=== PATIENT | male | born 1960 | race Caucasian/White ===

== ENCOUNTER 2018-12-22 13:00 | Emergency (ER) | payer BC ==
[2018-12-22 13:09] VITALS: RESP 18
[2018-12-22] MEDS ORDERED: KETOROLAC 30 MG/ML 1 ML VIAL IVP STA (13:50)
[2018-12-22] MEDS ORDERED: HYDROmorphone 0.5 MG/0.5 ML SYRINGE IVP STA (13:50)
[2018-12-22] MEDS ORDERED: SODIUM CHLORIDE 0.9% 500 ML 500 ML IV STA (13:50)
[2018-12-22] MEDS ORDERED: ONDANSETRON 4 MG/2 ML VIAL IVP STA (13:50)
--- NOTE | 2018-12-22 14:04 | ED ---
General Adult HPI - General Chief complaint: Abdominal Pain Stated complaint: kidney stone Time Seen by Provider: 12/22/18 13:00 Source: patient, RN notes reviewed Mode of arrival: ambulatory Limitations: no limitations - History of Present Illness Initial comments: This a 58-year-old male who presents emergency Department complaining of left mid back pain which radiates down to the left groin and into the leg. Patient states the pain is worse with movement. Patient states it's also been making him nauseated as well per patient states his symptoms started Saturday but has gotten progressively worse. Patient states the pain is constant and is slowly getting worse over time. Patient denies any vomiting. Patient denies any diarrhea. Patient denies any recent fever chills. Patient denies any recent injury or trauma. Patient states he has had a history of kidney stones in the past and this does feel somewhat similar. Patient denies any chest pain or difficulty breathing. Patient denies any lightheadedness or dizziness. Patient denies any urinary frequency dysuria or hematuria. - Related Data Home Medications Medication Instructions Recorded Confirmed Finasteride [Proscar] 5 mg PO DAILY 12/22/18 12/22/18 amLODIPine [Norvasc] 10 mg PO DAILY 12/22/18 12/22/18 Previous Rx's Medication Instructions Recorded Loratadine [Claritin] 10 mg PO DAILY #5 tab 09/02/15 Allergies Allergy/AdvReac Type Severity Reaction Status Date / Time codeine Allergy Dyspnea Verified 12/22/18 13:46 Penicillins Allergy Dyspnea Verified 12/22/18 13:46 Review of Systems ROS Statement: Those systems with pertinent positive or pertinent negative responses have been documented in the HPI. ROS Other: All systems not noted in ROS Statement are negative. Past Medical History Past Medical History: Hypertension Additional Past Medical History / Comment(s): crohn's History of Any Multi-Drug Resistant Organisms: None Reported Past Surgical History: Bowel Resection, Hernia Repair Additional Past Surgical History / Comment(s): colostomy, preformed is [facility]. 2000, kidney stones, chron's Past Anesthesia/Blood Transfusion Reactions: No Reported Reaction Past Psychological History: No Psychological Hx Reported Smoking Status: Never smoker Past Alcohol Use History: Occasional Past Drug Use History: None Reported - Past Family History Father Family Medical History: Cancer, Congestive Heart Failure (CHF) General Exam - General Exam Comments Initial Comments: GENERAL: Patient is well-developed and well-nourished. Patient is nontoxic and well- hydrated and is in no acute distress. ENT: Neck is soft and supple. No significant lymphadenopathy is noted. Oropharynx is clear. Moist mucous membranes. Neck has full range of motion without eliciting any pain. EYES: The sclera were anicteric and conjunctiva were pink and moist. Extraocular movements were intact and pupils were equal round and reactive to light. Eyelids were unremarkable. PULMONARY: Unlabored respirations. Good breath sounds bilaterally. No audible rales rhonchi or wheezing was noted. CARDIOVASCULAR: There is a regular rate and rhythm without any murmurs gallops or rubs. ABDOMEN: Soft and nontender with normal bowel sounds. No palpable organomegaly was noted. There is no palpable pulsatile mass. SKIN: Skin is clear with no lesions or rashes and otherwise unremarkable. NEUROLOGIC: Patient is alert and oriented x3. Cranial nerves II through XII are grossly intact. Motor and sensory are also intact. Normal speech, volume and content. Symmetrical smile. Straight leg test is positive at the left leg at about 30 . MUSCULOSKELETAL: Normal extremities with adequate strength and full range of motion. No lower extremity swelling or edema. No calf tenderness. LYMPHATICS: No significant lymphadenopathy is noted PSYCHIATRIC: Normal psychiatric evaluation. Limitations: no limitations Course Vital Signs 12/22/18 13:03 Temperature 98.5 F Pulse Rate 80 Respiratory 18 Rate Blood Pressure 181/103 O2 Sat by Pulse 100 Oximetry Medical Decision Making - Medical Decision Making Computed tomography scan shows no acute abnormality. - Lab Data Result diagrams: 12/22/18 15:04 12/22/18 15:04 Lab Results 12/22/18 12/22/18 12/22/18 Range/Units 13:10 15:04 15:04 WBC 5.8 (3.8-10.6) k/uL RBC 5.04 (4.30-5.90) m/uL Hgb 16.5 (13.0-17.5) gm/dL Hct 46.6 (39.0-53.0) % MCV 92.5 (80.0-100.0) fL MCH 32.8 (25.0-35.0) pg MCHC 35.4 (31.0-37.0) g/dL RDW 12.9 (11.5-15.5) % Plt Count 170 (150-450) k/uL Neutrophils % 58 % Lymphocytes % 27 % Monocytes % 9 % Eosinophils % 3 % Basophils % 0 % Neutrophils # 3.4 (1.3-7.7) k/uL Lymphocytes # 1.6 (1.0-4.8) k/uL Monocytes # 0.5 (0-1.0) k/uL Eosinophils # 0.2 (0-0.7) k/uL Basophils # 0.0 (0-0.2) k/uL Sodium 141 (137-145) mmol/L Potassium 4.7 (3.5-5.1) mmol/L Chloride 107 (98-107) mmol/L Carbon Dioxide 21 L (22-30) mmol/L Anion Gap 13 mmol/L BUN 17 (9-20) mg/dL Creatinine 0.91 (0.66-1.25) mg/dL Est GFR (CKD-EPI)AfAm >90 (>60 ml/min/1.73 sqM) Est GFR (CKD-EPI)NonAf >90 (>60 ml/min/1.73 sqM) Glucose 97 (74-99) mg/dL Calcium 9.6 (8.4-10.2) mg/dL Total Bilirubin 0.7 (0.2-1.3) mg/dL AST 33 (17-59) U/L ALT 23 (21-72) U/L Alkaline Phosphatase 65 (38-126) U/L Total Protein 8.2 (6.3-8.2) g/dL Albumin 4.8 (3.5-5.0) g/dL Urine Color Yellow Urine Appearance Clear (Clear) Urine pH 5.0 (5.0-8.0) Ur Specific [place] 1.025 (1.001-1.035) Urine Protein Negative (Negative) Urine Glucose (UA) Negative (Negative) Urine Ketones Negative (Negative) Urine Blood Negative (Negative) Urine Nitrite Negative (Negative) Urine Bilirubin Negative (Negative) Urine Urobilinogen <2.0 (<2.0) mg/dL Ur Leukocyte Esterase Negative (Negative) Disposition Clinical Impression: Sciatica Disposition: HOME SELF-CARE Condition: Good Instructions (If sedation given, give patient instructions): Sciatica (ED) Additional Instructions: Patient should take Motrin 600 mg every 6 hours when necessary for pain. Patient follow-up the primary medical care doctor. She should return to the emergency department for any worsening or new symptoms Is patient prescribed a controlled substance at d/c from ED?: No Referrals: Sathya Alexandre MD [Primary Care Provider] - 1-2 days Time of Disposition: 16:26
[2018-12-22 14:11] LABS: Appearance,Urine Clear (Clear); Bilirubin,Urine Negative (Negative); Blood,Urine Negative (Negative); Color,Urine Yellow; Glucose,Urine (UA) Negative (Negative); Ketones,Urine Negative (Negative); Leukocyte Esterase,Urine Negative (Negative); Nitrite,Urine Negative (Negative); Protein,Urine Negative (Negative); Specific Gravity,Urine 1.025 (1.001-1.035); Urobilinogen,Urine <2.0 mg/dL (<2.0)
--- NOTE | 2018-12-22 15:18 | XR ---
EXAMINATION TYPE: XR KUB DATE OF EXAM: 12/22/2018 3:13 PM CLINICAL HISTORY: Left flank pain for 3 days. TECHNIQUE: Two Upright KUB images of the abdomen are obtained. COMPARISON: CT abdomen and pelvis April 02, 2015 FINDINGS: Some paucity of bowel gas is present. Visualized gas is noted in nondistended stomach. Prom inent right hepatic lobe redemonstrated. Lung bases are clear. No pneumoperitoneum is identified. Rou nd 4 mm density left pelvis favors phlebolith. No definite nephrolithiasis. Visualized osseous struct ures are intact. IMPRESSION: No definite nephrolithiasis.
[2018-12-22 15:19] LABS: Basophils % (A) 0 %; Eosinophils # (A) 0.2 k/uL (0-0.7); Eosinophils % (A) 3 %; HCT 46.6 % (39.0-53.0); HGB 16.5 gm/dL (13.0-17.5); Lymphocytes # (A) 1.6 k/uL (1.0-4.8); Lymphocytes % (A) 27 %; MCH 32.8 pg (25.0-35.0); MCHC 35.4 g/dL (31.0-37.0); MCV 92.5 fL (80.0-100.0); Mean Platelet Volume 7.7; Monocytes # (A) 0.5 k/uL (0-1.0); Monocytes % (A) 9 %; Neutrophils # (A) 3.4 k/uL (1.3-7.7); Neutrophils % (A) 58 %; Platelet Count 170 k/uL (150-450); RBC 5.04 m/uL (4.30-5.90); RDW 12.9 % (11.5-15.5); WBC 5.8 k/uL (3.8-10.6)
[2018-12-22 15:28] LABS: ALT 23 U/L (21-72); AST 33 U/L (17-59); Albumin 4.8 g/dL (3.5-5.0); Alkaline Phosphatase 65 U/L (38-126); Anion Gap 13 mmol/L; Blood Urea Nitrogen 17 mg/dL (9-20); Calcium 9.6 mg/dL (8.4-10.2); Carbon Dioxide 21 mmol/L (22-30); Chloride 107 mmol/L (98-107); Glucose 97 mg/dL (74-99); Potassium 4.7 mmol/L (3.5-5.1); Sodium 141 mmol/L (137-145); Total Bilirubin 0.7 mg/dL (0.2-1.3); Total Protein 8.2 g/dL (6.3-8.2)
--- NOTE | 2018-12-22 15:55 | CT ---
EXAMINATION TYPE: CT abdomen pelvis wo con DATE OF EXAM: 12/22/2018 COMPARISON: 04/02/2015 HISTORY: left flank pain CT DLP: 454.3 mGycm Automated exposure control for dose reduction was used. TECHNIQUE: Helical acquisition of images was performed from the lung bases through the pelvis. FINDINGS: LUNG BASES: No significant abnormality is appreciated. LIVER/GB: Liver is reduced in attenuation correlate for hepatic steatosis. Area of focal fatty sparin g in the region of the caudate lobe of the liver suspected. No obvious gallstones. PANCREAS: No significant abnormality is seen. SPLEEN: Stable appearing 1 cm splenic artery aneurysm.. ADRENALS: Thickening of left adrenal gland noted. KIDNEYS: Punctate 1 mm calcification lower pole right kidney with no evidence of hydronephrosis. URINARY BLADDER: No significant abnormality is seen. ADENOPATHY: None visualized. OSSEOUS STRUCTURES: Hypertrophic and degenerative change of the spine noted. BOWEL: An ostomy is again noted. Findings appear to be stable from the prior exam. Mild bowel wall t hickening involving the left colon. OTHER: There is a density seen in the presacral space extends bilaterally which is unchanged dating b ack to 2009. Likely is postsurgical scar. Aorta of normal caliber. Atherosclerotic changes are seen c anal stenosis L4-5 suspected with some retroaortic left renal vein IMPRESSION: 1. Postoperative change with nonspecific bowel gas pattern. 2. Stable 1 cm splenic artery aneurysm prior exam. 3. Punctate lower pole right renal calculus with no evidence of hydronephrosis bilaterally. No defini te renal calculi on the left. 4. There is mild wall thickening of a bowel loop within the left abdomen correlate for enteritis.
[2018-12-22 16:56] VITALS: BP 134/97; PULSE 64; TEMP 97.7
== END 2018-12-22 16:57 | disposition home or self-care (01) ==
LOC: EC 13:00
DX: M54.32 Sciatica, left side (principal); R10.32 Left lower quadrant pain; R11.0 Nausea; I10 Essential (primary) hypertension; Z98.890 Other specified postprocedural states; Z93.3 Colostomy status; Z87.19 Personal history of other diseases of the digestive system; Z79.899 Other long term (current) drug therapy; Z88.5 Allergy status to narcotic agent; Z88.0 Allergy status to penicillin
CPT/HCPCS: 36415; 80053; 85025; 81003; 74018; 74176; 99284; 96374; 96375 ×2; 96361; J2405; J1885; J1170

== ENCOUNTER 2019-09-25 11:53 | Emergency (ER) | payer BC ==
[2019-09-25 11:58] VITALS: TEMP 97.6
--- NOTE | 2019-09-25 13:25 | XR ---
EXAMINATION TYPE: XR wrist complete RT DATE OF EXAM: 09/25/2019 CLINICAL HISTORY: Ulnar side pain. TECHNIQUE: Frontal, lateral, scaphoid, and oblique images of the right wrist are obtained. COMPARISON: None FINDINGS: There is no acute fracture/dislocation evident in the right wrist. Radiocarpal narrowing o therwise carpal joint space is fairly well-maintained. The overlying soft tissue appears unremarkabl e. IMPRESSION: As above.
--- NOTE | 2019-09-25 14:33 | ED ---
Upper Extremity HPI - General Chief Complaint: Extremity Injury, Upper Stated Complaint: rt arm injury Time Seen by Provider: 09/25/19 12:37 Source: patient Mode of arrival: ambulatory Limitations: no limitations - History of Present Illness Initial Comments: This is a 59-year-old male, who presents emergency department today for evaluation for chief complaint of right wrist pain. Patient reports that he had his wrist flexed, and was reaching behind as well as refrigerator help fix it. Patient reports he felt a pull and snap over his wrist, complains pain over the ulnar aspect of this risk, and pain with range of motion of his fifth and fourth digit. This time Patient states that he is right-handed. Patient states that he has had no previous injuries. His orthopedic is Dr. Arvizu. - Related Data Home Medications Medication Instructions Recorded Confirmed Finasteride [Proscar] 5 mg PO DAILY 12/22/18 12/22/18 amLODIPine [Norvasc] 10 mg PO DAILY 12/22/18 12/22/18 Previous Rx's Medication Instructions Recorded Loratadine [Claritin] 10 mg PO DAILY #5 tab 09/02/15 Allergies Allergy/AdvReac Type Severity Reaction Status Date / Time codeine Allergy Dyspnea Verified 09/25/19 11:58 Penicillins Allergy Dyspnea Verified 09/25/19 11:58 Review of Systems ROS Statement: Those systems with pertinent positive or pertinent negative responses have been documented in the HPI. ROS Other: All systems not noted in ROS Statement are negative. Past Medical History Past Medical History: Hypertension Additional Past Medical History / Comment(s): crohn's History of Any Multi-Drug Resistant Organisms: None Reported Past Surgical History: Bowel Resection, Hernia Repair Additional Past Surgical History / Comment(s): colostomy, preformed is [facility]. 1999, kidney stones, chron's Past Anesthesia/Blood Transfusion Reactions: No Reported Reaction Past Psychological History: No Psychological Hx Reported Smoking Status: Never smoker Past Alcohol Use History: Occasional Past Drug Use History: None Reported - Past Family History Father Family Medical History: Cancer, Congestive Heart Failure (CHF) General Exam - General Exam Comments Initial Comments: 59-year-old male. No distress. Limitations: no limitations General appearance: alert, in no apparent distress Head exam: Present: atraumatic Eye exam: Present: normal appearance, PERRL, EOMI. Absent: scleral icterus, conjunctival injection, periorbital swelling ENT exam: Present: normal exam, mucous membranes moist Neck exam: Present: normal inspection. Absent: tenderness, meningismus, lymphadenopathy Respiratory exam: Present: normal lung sounds bilaterally. Absent: respiratory distress, wheezes, rales, rhonchi, stridor Right Elbow exam: Present: normal inspection, full ROM Forearm Wrist exam: Present: normal inspection, full ROM Hand Wrist exam: Present: normal inspection, tenderness (Patient size over the ulnar aspect of the right wrist.). Absent: full ROM Neuro motor exam: Present: wrist extension intact, thumb opposition intact, thumb adduction intact, fingers 2-5 abduction intact, other (Patient has tenderness over the fourth and fifth digit with range of motion.) Vascular: Present: normal capillary refill Back exam: Present: normal inspection Neurological exam: Present: alert, oriented X3, CN II-XII intact Course Vital Signs 09/25/19 09/25/19 11:56 14:45 Temperature 97.6 F Pulse Rate 86 78 Respiratory 18 20 Rate Blood Pressure 169/99 122/76 O2 Sat by Pulse 99 99 Oximetry Procedures - Orthopedic Splinting/Casting Injury #1 Side: right Upper Extremity Injury Location: wrist Upper Extremity Immobilizer: ulnar gutter Additional Comments: Patient is reevaluated neurovascularly intact. Medical Decision Making - Medical Decision Making This is a 59-year-old male presents return today for right wrist injury. Patient this time reports he's always other and had his wrist in a flexed position when trying to fix the refrigerator. He felt a pop. Complains of pain over the ulnar aspect of the hand and wrist. This time Patient x-rays show no evidence of acute fracture dislocation. Due to likely tendon strain, Patient was placed in an ulnar gutter splint. I discussed the Patient can follow-up with intensive care specialist. Temperature medicine. All questions were answered. - Radiology Data Radiology results: report reviewed Wrist x-ray shows no acute fracture dislocation of the right wrist. Radiocarpal narrowing otherwise carpal joint spaces. Vomiting. Overlying soft tissue appears unremarkable. Disposition Clinical Impression: Right wrist sprain Disposition: HOME SELF-CARE Condition: Good Instructions (If sedation given, give patient instructions): Wrist Injury (ED) Additional Instructions: Patient can take anti-inflammatory medicine. Remain in the splint until seen by orthopedic. Return to the emergency department if any alarming signs or symptoms occur. Is patient prescribed a controlled substance at d/c from ED?: No Referrals: Sathya Alexandre MD [Primary Care Provider] - 1-2 days Asad Arvizu DO [Doctor of Osteopathic Medicine] - 1-2 days Time of Disposition: 14:32
[2019-09-25 14:47] VITALS: BP 122/76; PULSE 78; RESP 20
== END 2019-09-25 14:47 | disposition home or self-care (01) ==
LOC: EC 11:53
DX: S63.501A Unspecified sprain of right wrist, initial encounter (principal); I10 Essential (primary) hypertension; Z88.0 Allergy status to penicillin; Z88.5 Allergy status to narcotic agent; Z79.899 Other long term (current) drug therapy; X50.1XXA Overexertion from prolonged static or awkward postures, initial encounter; Y93.89 Activity, other specified
CPT/HCPCS: 29125; 99283

== ENCOUNTER → 2020-12-08 | Outpatient (CLI) | payer BC ==
--- NOTE | 2020-12-09 08:43 | CT ---
EXAMINATION TYPE: CT abdomen pelvis w con DATE OF EXAM: 12/08/2020 COMPARISON: 12/22/2018 HISTORY: 60-year-old male Right lower quadrant pain TECHNIQUE: Contiguous axial scanning of the abdomen and pelvis following administration of 100 ml Iso libertad 300 IV contrast. Delayed images through the kidneys and coronal/sagittal reconstructions perform ed. CT DLP: 1130 mGycm Automated exposure control for dose reduction was used. FINDINGS: Heart normal size without pericardial effusion. Lung bases clear without pleural effusion. There is a fluid column within the mildly distended distal esophagus. Prominent ingested debris within the valentine leisa fundus and body. Liver is enlarged at 22.0 cm with low-attenuation. No focal lesion is seen. No biliary ductal dilatat ion. Portal venous system is patent. Gallbladder, adrenal glands, spleen, pancreas within normal limits. There are a few left-sided jejunal loops which appear mildly thickened. No dilated small bowel, free fluid, free air. A few borderline sized left mesenteric lymph nodes measuring up to 7 mm were present previously as we ll. Prominent but nonenlarged 1 cm portacaval lymph node. No progressive lymphadenopathy seen. Circumaortic left renal vein. There is a right lower quadrant ileostomy. The colon is surgically absent. Bladder partially distended. Prostate gland measures 4.0 cm wide. No abnormal fluid collection in pel vis or pelvic lymphadenopathy. Bones: Mild degenerative change at the hips. Facet arthropathy lower lumbar spine. IMPRESSION: 1. Status post complete colectomy with right lower quadrant ileostomy. 2. There are some thickened loops of jejunum in the left side of the abdomen. Nonspecific mild enteri tis is suggested. 3. A fluid column mildly distending the distal esophagus. Findings could reflect esophageal dysmotili ty or prominent gastroesophageal reflux. Correlate with patient's symptoms. 4. Hepatomegaly (22.0 cm) with hepatic steatosis.
== END | disposition home or self-care (01) ==
LOC: RADCTMAIN 13:23
PROVIDERS: ATTEND Surgery
DX: K76.0 Fatty (change of) liver, not elsewhere classified (principal); R16.0 Hepatomegaly, not elsewhere classified; K22.8 Other specified diseases of esophagus; K63.89 Other specified diseases of intestine; Z90.49 Acquired absence of other specified parts of digestive tract
CPT/HCPCS: 74177; Q9967

== ENCOUNTER → 2021-06-14 | Outpatient (CLI) | payer BC ==
--- NOTE | 2021-06-14 16:42 | NM ---
EXAMINATION TYPE: NM stress cardiolite complete DATE OF EXAM: 06/14/2021 COMPARISON: NONE HISTORY: Dyspnea. Bradycardia. TECHNIQUE: After the intravenous administration of 9.9 mCi Tc 99m Sestamibi - Rest images obtained 4 5 minutes post injection. The patient exercised using a ELIZABETH protocol and 1 minute prior to peak e xercise was injected with 25.996 mCi Tc 99m Sestamibi - Stress images obtained 15 minutes post inject ion. FINDINGS: Targeted heart rate was achieved during performance of the study. Review of stress and rest SPECT odin ges demonstrates no distinct reversible or fixed perfusion abnormality. Gated analysis shows normal wall motion with an estimated left ventricular ejection fraction of 65 %. TID 0.62 IMPRESSION: 1. No scintigraphic evidence for reversible ischemia 2. Ejection fraction 65%.
--- NOTE | 2021-06-15 17:32 | P.STRESS ---
- Stress Test Note Stress Test Results/Findings: Exam Performed: stress echo exercise Exam Date: 06/14/21 Reason for Exam: DYSPNEA Height: 5 ft 10 in Weight: 190 kg Protocol: CARDIOLITE ELIZABETH Stage: 3 Duration of Exercise: 7:15 Resting Heart Rate: 74 Resting Blood Pressure: 131/94 Maximum Achieved Heart Rate: 160 Maximum Achieved Blood Pressure: 231/95 85% PMHR: 136 100% PMHR: 160 METS: 8.7 Technologist Comment: Stress Test Results/Findings: Patient exercised on a Elizabeth protocol for 7 minutes 15 seconds achieving a peak heart rate of 158 beats a minute. Hypertensive response to exercise Peak blood pressure 231/95 mmHg Twelve-lead EKG showed sinus rhythm normal NV incomplete right bundle branch block with early repolarization abnormality No ECG evidence for ischemia no arrhythmias noted
--- NOTE | 2021-06-16 09:06 | ECHOS ---
Stress Test Results/Findings: Exam Performed: stress echo exercise Exam Date: 06/14/21 Reason for Exam: DYSPNEA Height: 5 ft 10 in Weight: 190 kg Protocol: CARDIOLITE ELIZABETH Stage: 3 Duration of Exercise: 7:15 Resting Heart Rate: 74 Resting Blood Pressure: 131/94 Maximum Achieved Heart Rate: 160 Maximum Achieved Blood Pressure: 231/95 85% PMHR: 136 100% PMHR: 160 METS: 8.7 Technologist Comment: Stress Test Results/Findings: Patient exercised on a Elizabeth protocol for 7 minutes 15 seconds achieving a peak heart rate of 158 beats a minute. Hypertensive response to exercise Peak blood pressure 231/95 mmHg Twelve-lead EKG showed sinus rhythm normal PA incomplete right bundle branch block with early repolarization abnormality No ECG evidence for ischemia no arrhythmias noted MTDD
== END | disposition home or self-care (01) ==
LOC: RADNMMAIN 07:49
PROVIDERS: ATTEND Internal Medicine
DX: R06.00 Dyspnea, unspecified (principal); R00.1 Bradycardia, unspecified
CPT/HCPCS: 93017; 78452; A9500

== ENCOUNTER → 2021-11-07 | Outpatient (CLI) | payer BC ==
--- NOTE | 2021-11-07 14:29 | XR ---
EXAMINATION TYPE: XR knee complete LT DATE OF EXAM: 11/07/2021 CLINICAL HISTORY: Clicking and pain TECHNIQUE: Three views of the left knee are obtained. COMPARISON: None. FINDINGS: There is no acute fracture/dislocation evident in left knee. [id number] tricompartme nt joint space loss. Mild patellofemoral compartment spurring. The overlying soft tissue appears unr emarkable. IMPRESSION: As above.
== END | disposition home or self-care (01) ==
LOC: RADXRMAIN 13:52
PROVIDERS: ATTEND Internal Medicine
DX: M25.862 Other specified joint disorders, left knee (principal)

== ENCOUNTER → 2023-12-23 | Outpatient (CLI) | payer BC ==
--- NOTE | 2023-12-23 17:44 | US ---
EXAMINATION TYPE: US carotid duplex BILAT DATE OF EXAM: 12/23/2023 COMPARISON: NONE CLINICAL INDICATION: Male, 63 years old with history of I65.23 OCCLUSION AND STENOSIS OF BILATERAL CA ROTID; Stenosis. TECHNIQUE: Carotid duplex ultrasound examination. Indirect Doppler criteria was utilized. FINDINGS: EXAM MEASUREMENTS: RIGHT: Peak Systolic Velocity (PSV) cm/sec ----- Right CCA: 137.0 ----- Right ICA: 96.6 ----- Right ECA: 116.0 ICA/CCA ratio: 0.7 RIGHT: End Diastole cm/sec ----- Right CCA: 35.3 ----- Right ICA: 20.9 ----- Right ECA: 18.9 LEFT: Peak Systolic Velocity (PSV) cm/sec ----- Left CCA: 121.1 ----- Left ICA: 99.6 ----- Left ECA: 84.2 ICA/CCA ratio: 0.8 LEFT: End Diastole cm/sec ----- Left CCA: 33.1 ----- Left ICA: 22.6 ----- Left ECA: 11.7 VERTEBRALS (direction of flow): Right Vertebral: Antegrade Left Vertebral: Antegrade Rhythm: Normal PROPERTY CONSULTANT NOTES: *Elevated velocities within bilateral CCAs. Intimal thickening seen bilaterally. IMPRESSION: There is mild elevation of peak systolic velocities within the bilateral common carotid arteries. Thi s could reflect mild proximal stenoses at the vessel origins. No hemodynamically significant internal carotid artery stenosis on either side. Criteria for Assigning % of Stenosis / Diameter reduction (Estimation based on the indirect measurements of the internal carotid artery velocities (ICA PSV). 1. Normal (no stenosis)=ICA PSV < 125 cm/s: ratio < 2.0: ICA EDV<40 cm/s. 2. Less than 50% stenosis=ICA PSV < 125 cm/s: ratio < 2.0: ICA EDV<40 cm/s. 3. 50 to 69% stenosis=ICA PSV of 125 to 230 cm/s: ration 2.0 ? 4.0: ICA EDV 40-100 cm/s. 4. Greater than 70% stenosis to near occlusion= ICA PSV > 230 cm/s: ratio > 4.0: ICA EDV > 100 cm/s. 5. Near occlusion= ICA PSV velocities may be low or undetectable: variable ratio and ICA EDV. 6. Total occlusion=unable to detect flow.
== END | disposition home or self-care (01) ==
LOC: RADUSWWP 10:57
PROVIDERS: ATTEND Internal Medicine
DX: I65.23 Occlusion and stenosis of bilateral carotid arteries (principal)
CPT/HCPCS: 93880

== ENCOUNTER 2024-04-05 08:52 | Observation (INO) | payer BC ==
--- NOTE | 2024-04-05 09:10 | ED ---
General Adult HPI - General Chief complaint: Nausea/Vomiting/Diarrhea Stated complaint: Nausea, ABD Pain Time Seen by Provider: 04/05/24 09:00 Source: patient, RN notes reviewed, old records reviewed Mode of arrival: ambulatory Limitations: no limitations - History of Present Illness Initial comments: This is a 63-year-old male who has a history of Crohn's disease. Patient has a colostomy bag. Patient states over the last few days he has been having issues with going more often. Patient states anything he drinks or eats goes right through him he is becoming very dehydrated and lightheaded when he walks. Patient denies any significant abdominal pain. Patient Nuys any back pain. Patient denies any fever or chills. Patient Nuys chest pain difficulty breathing or shortness of breath. Patient states is difficult to tell if he is having any diarrhea because is normally very liquid but he states the stool is extremely clear at this point. - Related Data Home Medications Medication Instructions Recorded Confirmed Finasteride [Proscar] 5 mg PO DAILY 12/22/18 12/22/18 amLODIPine [Norvasc] 10 mg PO DAILY 12/22/18 12/22/18 Previous Rx's Medication Instructions Recorded Loratadine [Claritin] 10 mg PO DAILY #5 tab 09/02/15 Allergies Allergy/AdvReac Type Severity Reaction Status Date / Time codeine Allergy Dyspnea Verified 09/25/19 11:58 Penicillins Allergy Dyspnea Verified 09/25/19 11:58 Review of Systems ROS Statement: Those systems with pertinent positive or pertinent negative responses have been documented in the HPI. ROS Other: All systems not noted in ROS Statement are negative. Past Medical History Past Medical History: Hypertension Additional Past Medical History / Comment(s): crohn's History of Any Multi-Drug Resistant Organisms: None Reported Past Surgical History: Bowel Resection, Hernia Repair Additional Past Surgical History / Comment(s): colostomy, preformed is appox. 2000, kidney stones, chron's Past Anesthesia/Blood Transfusion Reactions: No Reported Reaction Past Psychological History: No Psychological Hx Reported Past Alcohol Use History: Occasional Past Drug Use History: None Reported - Past Family History Father Family Medical History: Cancer, Congestive Heart Failure (CHF) General Exam - General Exam Comments Initial Comments: GENERAL: Patient is well-developed and well-nourished. Patient is nontoxic and well- hydrated and is in mild distress. ENT: Neck is soft and supple. No significant lymphadenopathy is noted. Oropharynx is clear. Dry mucous membranes. Neck has full range of motion without eliciting any pain. EYES: The sclera were anicteric and conjunctiva were pink and moist. Extraocular movements were intact and pupils were equal round and reactive to light. Eyelids were unremarkable. PULMONARY: Unlabored respirations. Good breath sounds bilaterally. No audible rales rhonchi or wheezing was noted. CARDIOVASCULAR: Patient is tachycardic at about 120 beats a minute ABDOMEN: Soft and nontender with normal bowel sounds. SKIN: Skin is clear with no lesions or rashes and otherwise unremarkable. NEUROLOGIC: Patient is alert and oriented x3. Cranial nerves II through XII are grossly intact. Motor and sensory are also intact. Normal speech, volume and content. Symmetrical smile. MUSCULOSKELETAL: Normal extremities with adequate strength and full range of motion. LYMPHATICS: No significant lymphadenopathy is noted PSYCHIATRIC: Normal psychiatric evaluation. Limitations: no limitations Course Vital Signs 04/05/24 04/05/24 04/05/24 08:54 09:53 09:54 Temperature 97.3 F L Pulse Rate 120 H 87 90 Respiratory 20 17 Rate Blood Pressure 131/84 140/105 O2 Sat by Pulse 95 97 Oximetry Medical Decision Making - Medical Decision Making Was pt. sent in by a medical professional or institution (, [facility], [employer], urgent care, hospital, or snf...) When possible be specific @ -No Did you speak to anyone other than the patient for history (EMS, parent, family, police, friend...)? What history was obtained from this source @ -No Did you review nursing and triage notes (agree or disagree)? Why? @ -I reviewed and agree with nursing and triage notes Were old charts reviewed (outside hosp., previous admission, EMS record, old EKG, old radiological studies, urgent care reports/EKG's, snf records)? Report findings @ -I compared today's lab work with prior lab work. Patient's hemoglobin in the past was normal as was creatinine but today they are both elevated. Differential Diagnosis (chest pain, altered mental status, abdominal pain women, abdominal pain men, vaginal bleeding, weakness, fever, dyspnea, syncope, headache, dizziness, GI bleed, back pain, seizure, CVA, palpatations, mental health, musculoskeletal)? @ -Differential Dizziness: Benign paroxysmal positional Vertigo, Menieres disease, otitis media, acoustic neuroma, vertebrobasilar insufficiency, cerebellar stroke, encephalitis, hypovolemic, arrhythmia, coronary artery syndrome, anemia, this is not meant to be an all-inclusive list EKG interpreted by me (3pts min.). @ -As above X-rays interpreted by me (1pt min.). @ -None done CT interpreted by me (1pt min.). @ -None done U/S interpreted by me (1pt. min.). @ -None done What testing was considered but not performed or refused? (CT, X-rays, U/S, labs)? Why? @ -None What meds were considered but not given or refused? Why? @ -None Did you discuss the management of the patient with other professionals (professionals i.e. , PA, CE[employer]ACHINE, lab, RT, psych nurse, social media intern, hose builder, teacher, information systems security officer, case hardener)? Give summary @ -I spoke with Dr. Camacho and he agreed to admit the patient admit the patient wrote admitting orders Was smoking cessation discussed for >3mins.? @ -No Was critical care preformed (if so, how long)? @ -No Were there social determinants of health that impacted care today? How? (Homelessness, low income, unemployed, alcoholism, drug addiction, transportation, low edu. Level, literacy, decrease access to med. care, detention, rehab)? @ -No Was there de-escalation of care discussed even if they declined (Discuss DNR or withdrawal of care, Hospice)? DNR status @ -No What co-morbidities impacted this encounter? (DM, HTN, Smoking, COPD, CAD, Cancer, CVA, ARF, Chemo, Hep., AIDS, mental health diagnosis, sleep apnea, morbid obesity)? @ -None Was patient admitted / discharged? Hospital course, mention meds given and route, prescriptions, significant lab abnormalities, going to OR and other pe rtinent info. @ -Patient was dehydrated and his creatinine was elevated to 2.6. I gave the patient a liter and half of fluid. Patient was feeling slightly better. I spoke with Dr. Camacho he agreed admit the patient admit the patient wrote admitting orders. I consulted nephrology Undiagnosed new problem with uncertain prognosis? @ -No Drug Therapy requiring intensive monitoring for toxicity (Heparin, Nitro, Insulin, Cardizem)? @ -No Were any procedures done? @ -No Diagnosis/symptom? @ -Acute renal failure Acute, or Chronic, or Acute on Chronic? @ -Acute Uncomplicated (without systemic symptoms) or Complicated (systemic symptoms)? @ -Comp with Side effects of treatment? @ -No Exacerbation, Progression, or Severe Exacerbation? @ -No Poses a threat to life or bodily function? How? (Chest pain, USA, NH, pneumonia, PE, COPD, DKA, ARF, appy, cholecystitis, CVA, Diverticulitis, Homicidal, Lo cidal, threat to staff... and all critical care pts) @ -Yes this can lead to electrolyte abnormalities and morbidity or mortality. Diagnosis/symptom? @ -Dehydration Acute, or Chronic, or Acute on Chronic? @ -Acute Uncomplicated (without systemic symptoms) or Complicated (systemic symptoms)? @ -Complicated Side effects of treatment? @ -None Exacerbation, Progression, or Severe Exacerbation] @ -No Poses a threat to life or bodily function? @ -No - Lab Data Result diagrams: 04/05/24 09:43 04/05/24 09:43 Lab Results 04/05/24 04/05/24 04/05/24 Range/Units 09:43 09:43 09:43 WBC 9.3 (3.8-10.6) k/uL RBC 5.92 H (4.30-5.90) m/uL Hgb 19.1 H* (13.0-17.5) gm/dL Hct 57.7 H* (39.0-53.0) % MCV 97.3 (80.0-100.0) fL MCH 32.2 (25.0-35.0) pg MCHC 33.1 (31.0-37.0) g/dL RDW 12.9 (11.5-15.5) % Plt Count 189 (150-450) k/uL MPV 9.3 Neutrophils % 80 % Lymphocytes % 11 % Monocytes % 7 % Eosinophils % 1 % Basophils % 0 % Neutrophils # 7.4 (1.3-7.7) k/uL Lymphocytes # 1.1 (1.0-4.8) k/uL Monocytes # 0.6 (0-1.0) k/uL Eosinophils # 0.1 (0-0.7) k/uL Basophils # 0.0 (0-0.2) k/uL Sodium 138 (137-145) mmol/L Potassium 5.6 H (3.5-5.1) mmol/L Chloride 104 (98-107) mmol/L Carbon Dioxide 15 L (22-30) mmol/L Anion Gap 19 mmol/L BUN 27 H (9-20) mg/dL Creatinine 2.60 H (0.66-1.25) mg/dL Est GFR (CKD-EPI)AfAm 29 (>60 ml/min/1.73 sqM) Est GFR (CKD-EPI)NonAf 25 (>60 ml/min/1.73 sqM) Glucose 134 H (74-99) mg/dL Plasma Lactic Acid Joao 1.6 (0.7-2.0) mmol/L Calcium 11.0 H (8.4-10.2) mg/dL Magnesium 2.1 (1.6-2.3) mg/dL Total Bilirubin 1.5 H (0.2-1.3) mg/dL AST 43 (17-59) U/L ALT 49 (4-49) U/L Alkaline Phosphatase 108 (38-126) U/L Total Protein 11.0 H (6.3-8.2) g/dL Albumin 5.8 H (3.5-5.0) g/dL Amylase 77 (30-110) U/L Lipase 63 (23-300) U/L Disposition Clinical Impression: Acute renal failure, Dehydration Disposition: ADMITTED IP TO THIS HOSP Referrals: Mayur Camacho MD [Primary Care Provider] - 1-2 days Time of Disposition: 10:43
[2024-04-05] MEDS: SODIUM CHLORIDE 0.9% 500 ML 500 ML IV STA (09:45)
[2024-04-05] MEDS: ONDANSETRON 4 MG/2 ML VIAL IVP STA (09:45)
[2024-04-05] MEDS: SODIUM CHLORIDE 0.9% 1,000 ML IV STA (09:45)
[2024-04-05 10:12] LABS: ALT 49 U/L (4-49); AST 43 U/L (17-59); African American GFR (CKD) 29 (>60 ml/min/1.73 sqM); Albumin 5.8 g/dL (3.5-5.0); Alkaline Phosphatase 108 U/L (38-126); Amylase 77 U/L (30-110); Anion Gap 19 mmol/L; Blood Urea Nitrogen 27 mg/dL (9-20); Carbon Dioxide 15 mmol/L (22-30); Chloride 104 mmol/L (98-107); Glucose 134 mg/dL (74-99); Lipase 63 U/L (23-300); Magnesium 2.1 mg/dL (1.6-2.3); Non-African American GFR(CKD) 25 (>60 ml/min/1.73 sqM); Potassium 5.6 mmol/L (3.5-5.1); Sodium 138 mmol/L (137-145); Total Bilirubin 1.5 mg/dL (0.2-1.3)
[2024-04-05 10:21] LABS: Basophils % (A) 0 %; Eosinophils # (A) 0.1 k/uL (0-0.7); Eosinophils % (A) 1 %; Lymphocytes # (A) 1.1 k/uL (1.0-4.8); Lymphocytes % (A) 11 %; MCH 32.2 pg (25.0-35.0); MCHC 33.1 g/dL (31.0-37.0); MCV 97.3 fL (80.0-100.0); Mean Platelet Volume 9.3; Monocytes # (A) 0.6 k/uL (0-1.0); Monocytes % (A) 7 %; Neutrophils # (A) 7.4 k/uL (1.3-7.7); Neutrophils % (A) 80 %; Platelet Count 189 k/uL (150-450); RBC 5.92 m/uL (4.30-5.90); RDW 12.9 % (11.5-15.5); WBC 9.3 k/uL (3.8-10.6)
[2024-04-05 10:29] LABS: HCT 57.7 % (39.0-53.0); HGB 19.1 gm/dL (13.0-17.5)
[2024-04-05] MEDS: SODIUM CHLORIDE 0.9% 1,000 ML IV ONE (10:51)
--- NOTE | 2024-04-05 11:30 | P.NPCON ---
History of Present Illness - Reason for Consult acute renal failure - History of Present Illness Reason for consultation: Acute kidney injury History of present illness: Patient is a 63-year-old male seen in renal consultation for acute kidney injury. Patient denies any personal history of kidney disease. Patient's creatinine in November 2022 was 1.0 and elevated at 2.6 this admission. Patient has history of Crohn's disease and has an ileostomy for over 20 years. Patient states he usually empties his ileostomy twice a day and recently has noticed increased output and has to empty his colostomy almost every hour. Patient states he felt dizzy and was also having generalized cramping. Patient felt he needed IV fluids and came to the hospital. Patient does take vitamin D supplementation every day. He is not sure of the dose. He denies any calcium supplementation. He denies any personal history of malignancy. No chest pain or shortness of breath. He has been voiding but has noticed urine output has been decreased. No gross hematuria or dysuria. Denies use of nonsteroidals. Denies family history of renal disease. Denies history of coronary artery disease. No history of diabetes. Patient states he vomited once which was self-induced but that did not help with his overall symptoms or ileostomy output. Vital signs are stable. General: No audible rhonchi or wheezes. HEENT: Head exam is unremarkable. LUNGS: No audible rhonchi or wheezes. HEART: Rate and Rhythm are regular. ABDOMEN: Ileostomy noted. EXTREMITITES: No edema. Past Medical History Past Medical History: Hypertension Additional Past Medical History / Comment(s): crohn's History of Any Multi-Drug Resistant Organisms: None Reported Past Surgical History: Bowel Resection, Hernia Repair Additional Past Surgical History / Comment(s): colostomy, preformed is appox. 2000, kidney stones, chron's Past Anesthesia/Blood Transfusion Reactions: No Reported Reaction Past Psychological History: No Psychological Hx Reported Past Alcohol Use History: Occasional Past Drug Use History: None Reported - Past Family History Father Family Medical History: Cancer, Congestive Heart Failure (CHF) Medications and Allergies Home Medications Medication Instructions Recorded Confirmed Type Loratadine [Claritin] 10 mg PO DAILY #5 tab 09/02/15 12/22/18 Rx Finasteride [Proscar] 5 mg PO DAILY 12/22/18 12/22/18 History amLODIPine [Norvasc] 10 mg PO DAILY 12/22/18 12/22/18 History Allergies Allergy/AdvReac Type Severity Reaction Status Date / Time chocolate Allergy Unknown Verified 04/05/24 10:47 codeine Allergy Dyspnea Verified 09/25/19 11:58 Penicillins Allergy Dyspnea Verified 09/25/19 11:58 Physical Exam Vitals: Vital Signs Temp Pulse Resp BP Pulse Ox 04/05/24 11:00 79 16 158/105 97 04/05/24 10:45 80 15 155/100 97 04/05/24 10:30 80 16 152/105 97 04/05/24 10:15 87 16 148/105 96 04/05/24 10:00 84 15 140/105 94 L 04/05/24 09:54 90 17 140/105 97 04/05/24 09:53 87 04/05/24 08:54 97.3 F L 120 H 20 131/84 95 Intake and Output 04/04/24 04/05/24 04/05/24 22:59 06:59 14:59 Other: Weight 87.09 kg Results - Lab Results Most recent lab results Calcium 11.0 mg/dL (8.4-10.2) H 04/05/24 09:43 Magnesium 2.1 mg/dL (1.6-2.3) 04/05/24 09:43 04/05/24 09:43 04/05/24 09:43 Assessment and Plan Plan: Assessment: 1. Acute kidney injury secondary to ATN secondary to hypovolemia from increased ileostomy output. Creatinine 2.6. Creatinine in November 2022 was near 1. 2. Metabolic acidosis secondary to acute kidney injury and GI losses. 3. Hypercalcemia secondary to volume contraction and vitamin D supplementation. Denies history of malignancy. 4. Hyperkalemia. Hemolyzed sample. This will be repeated. 5. Polycythemia possibly from volume contraction. 6. Benign hypertension. 7. Crohn's disease status post ileostomy for over 20 years. Plan: Patient received 2 L IV fluids in the ER. Start maintenance fluids with bicarb drip to be run at 125 cc an hour. Avoid calcium and vitamin D supplementation at this time. Check renal ultrasound. Check UA. Check bladder scan to rule out urinary retention. Avoid nephrotoxins. Resume amlodipine but at a lower dose of 5 mg once daily. Hold for systolic blood pressure less than 120. Repeat BMP now. Continue to monitor renal function and urine output. Thank you for the consultation. I will continue to follow the patient with you during his hospital stay.
[2024-04-05] MEDS: amLODIPine 5 MG TAB PO SCH (12:32)
[2024-04-05 13:05] LABS: African American GFR (CKD) 48 (>60 ml/min/1.73 sqM); Anion Gap 17 mmol/L; Blood Urea Nitrogen 26 mg/dL (9-20); Calcium 9.7 mg/dL (8.4-10.2); Carbon Dioxide 11 mmol/L (22-30); Chloride 109 mmol/L (98-107); Glucose 101 mg/dL (74-99); Non-African American GFR(CKD) 42 (>60 ml/min/1.73 sqM); Potassium 5.8 mmol/L (3.5-5.1); Sodium 137 mmol/L (137-145)
[2024-04-05] MEDS: DEXTROSE 5% IN WATER 1,000 ML with SODIUM BICARB (1 MEQ/ML) 150 ML IV SCH (13:22)
--- NOTE | 2024-04-05 13:37 | US ---
EXAMINATION TYPE: US kidneys/renal and bladder DATE OF EXAM: 04/05/2024 COMPARISON: CT 2020 CLINICAL INDICATION: Male, 63 years old with history of anne marie; EXAM MEASUREMENTS: Right Kidney: 12.2 x 4.8 x 5.0 cm Left Kidney: 12.4 x 4.9 x 4.9 cm Right Kidney: no hydronephrosis or masses seen Left Kidney: no hydronephrosis or masses seen Bladder: not distended There is no evidence for hydronephrosis at this point in time. No nephrolithiasis is seen. No josep s are identified. IMPRESSION: 1. Normal kidneys bilaterally without hydronephrosis, calculus or solid renal mass. 2. Urinary bladder not evaluated due to nondistention
[2024-04-05 13:41] LABS: Appearance,Urine Cloudy (Clear); Bacteria,Urine Rare /hpf; Bilirubin,Urine Negative (Negative); Blood,Urine Small (Negative); Color,Urine Yellow; Glucose,Urine (UA) Negative (Negative); Granular Casts,Urine 5 /lpf (0); Hyaline Casts,Urine 70 /lpf (0-2); Ketones,Urine Negative (Negative); Leukocyte Esterase,Urine Negative (Negative); Mucus,Urine Many /hpf; Nitrite,Urine Negative (Negative); PH, Urine 5.5 (5.0-8.0); Protein,Urine 1+ (Negative); RBC,Urine 2 /hpf (0-5); Specific Gravity,Urine 1.022 (1.001-1.035); Urobilinogen,Urine <2.0 mg/dL (<2.0); WBC,Urine 2 /hpf (0-5)
[2024-04-05 13:51] LABS: Calcium Oxalate Crystals,Urine Rare /hpf
[2024-04-05] MEDS: SODIUM BICARB 8.4% 50 ML SYR (1 MEQ/ML) IV STA (15:47)
[2024-04-05] MEDS: SODIUM ZIRCONIUM CYCLOSILICATE 10 GM PACKET PO ONE (15:47)
--- NOTE | 2024-04-05 19:28 | P.HPIM ---
History of Present Illness H&P Date: 04/05/24 Chief Complaint: acute renal failure, dehydration HISTORY OF PRESENT ILLNESS Patient is a 63-year-old male with a medical history of primary hypertension, Crohn's disease with ileostomy, and mixed hyperlipidemia. Patient presented to the emergency room today with complaints of nausea, vomiting, and increased ileostomy output. Patient states he normally empties his ileostomy bag twice daily and has been emptying it every hour. Patient states the consistency is clear at this point. Patient also reports that he and his [id number] had eaten the same food two days ago from a restaurant and both have been ill since. Patient reports abdominal cramping as well. Patient was given 2.5 L of normal saline in the emergency department. Nephrology has been consulted. Continue D5W with sodium bicarb at 125 cc an hour. Renal ultrasound showed normal kidneys bilaterally without hydronephrosis calculus or solid renal mass. The urinary bladder was not evaluated due to to nondistention. Patient will be admitted for acute renal failure due to dehydration. REVIEW OF SYSTEMS Constitutional: No fever, no chills, no night sweats. No weight change. No we akness, fatigue or lethargy. No daytime sleepiness. EENT: No headache. No blurred vision or double vision, no loss of vision. No loss of Hearing, no ringing in the ears, no dizziness. No nasal drainage or congestion. No epistaxis. No sore throat. Lungs: No shortness of breath, cough, no sputum production. No wheezing. Cardiovascular: No chest pain, no lower extremity edema. No palpitations. No paroxysmal nocturnal dyspnea. No orthopnea. No lightheadedness or dizziness. No syncopal episodes. Abdominal: Positive abdominal cramping. Positive nausea, vomiting. Positive diarrhea. No constipation. No bloody or tarry stools. No loss of appetite. Genitourinary: No dysuria, increased frequency, urgency. No urinary retention. Musculoskeletal: No myalgias. No muscle weakness, no gait dysfunction, no frequent falls. No back pain. No neck pain. Integumentary: No wounds, no lesions. No rash or pruritus. No unusual bruising. No change in hair or nails. Neurologic: No aphasia. No facial droop. No change in mentation. No head injury. No headache. No paralysis. No paresthesia. Psychiatric: No depression. No anxiety. No mood swings. Endocrine: No abnormal blood sugars. No weight change. No excessive sweating or thirst. No cold intolerance. MEDICAL HISTORY Primary hypertension Crohn's disease Mixed hyperlipidemia SURGICAL HISTORY Colectomy with ileostomy 1998 Bilateral inguinal hernia repairs Fisulectomy SOCIAL HISTORY Nonsmoker Denies drug use Alcohol occasionally, socially FAMILY HISTORY Father- 78 years of age, multiple myeloma Mother-alive, hypertension and dementia Sister-alive, no known medical issues PHYSICAL EXAMINATION Gen: This is a 63-year-old male in no apparent distress. HEENT: Head is atraumatic, normocephalic. Pupils equal, round. Sclerae is anicteric. Dry oral mucosa NECK: Supple. No JVD. No lymphadenopathy. No thyromegaly. LUNGS: Clear to auscultation. No wheezes or rhonchi. No intercostal retractions . HEART: Regular rate and rhythm. No murmur. ABDOMEN: Soft. Bowel sounds are present. No masses. Mild tenderness all 4 quadrants. Ileostomy present. EXTREMITIES: No pedal edema. No calf tenderness. NEUROLOGICAL: Patient is awake, alert and oriented x3. Cranial nerves 2 through 12 are grossly intact. ASSESSMENT AND PLAN 1. Acute renal failure due to dehydration. Patient was given 2.5 L of normal saline in the emergency department. Nephrology has been consulted. Continue D5W with sodium bicarb at 125 cc an hour. Avoid nephrotoxins, monitor renal function, and urine output. Potassium 5.8, hyperkalemia treated with Lokelma. Repeat potassium tonight at 1999. Renal ultrasound was ordered by nephrology; normal kidneys bilaterally without hydronephrosis, calculus or solid renal mass. Urinary bladder not evaluated due to nondistention. We will repeat CBC and BMP tomorrow. Continue Zofran 4 mg IV push as needed. 2. Primary hypertension. Continue Norvasc 5 mg once daily. 3. Crohn's disease with ileostomy. Stable. 4. Mixed hyperlipidemia. Continue rosuvastatin 10 mg once daily. 5. GI prophylaxis. Start Protonix 40 mg IV once daily. 6. DVT prophylaxis. Start Lovenox 40 mg subcutaneous once daily. 7. Patient to be admitted inpatient. Impression and plan of care have been directed as dictated by the signing physician. Mala Jonas nurse practitioner acting as scribe for signing physician. Past Medical History Past Medical History: Hypertension Additional Past Medical History / Comment(s): crohn's History of Any Multi-Drug Resistant Organisms: None Reported Past Surgical History: Bowel Resection, Hernia Repair Additional Past Surgical History / Comment(s): colostomy, preformed is appox. 1999, kidney stones, chron's Past Anesthesia/Blood Transfusion Reactions: No Reported Reaction Past Psychological History: No Psychological Hx Reported Past Alcohol Use History: Occasional Past Drug Use History: None Reported - Past Family History Father Family Medical History: Cancer, Congestive Heart Failure (CHF) Medications and Allergies Home Medications Medication Instructions Recorded Confirmed Type Rosuvastatin [Crestor] 10 mg PO DAILY 04/05/24 04/05/24 History amLODIPine BESYLATE/BENAZEPRIL 1 cap PO DAILY 04/05/24 04/05/24 History [amLODIPine BESYLATE/BENAZEPRIL 5-10 mg] Allergies Allergy/AdvReac Type Severity Reaction Status Date / Time chocolate Allergy Anaphylaxis, Verified 04/05/24 11:36 Dyspnea codeine Allergy Anaphylaxis, Verified 04/05/24 11:36 Dyspnea Penicillins Allergy Anaphylaxis, Verified 04/05/24 11:36 Dyspnea Physical Exam Vitals: Vital Signs Temp Pulse Resp BP Pulse Ox 04/05/24 11:24 138/96 04/05/24 11:00 79 16 158/105 97 04/05/24 10:45 80 15 155/100 97 04/05/24 10:30 80 16 152/105 97 04/05/24 10:15 87 16 148/105 96 04/05/24 10:00 84 15 140/105 94 L 04/05/24 09:54 90 17 140/105 97 04/05/24 09:53 87 04/05/24 08:54 97.3 F L 120 H 20 131/84 95 Intake and Output 04/04/24 04/05/24 04/05/24 22:59 06:59 14:59 Other: Weight 87.09 kg Results CBC & Chem 7: 04/05/24 09:43 04/05/24 11:55 Labs: Abnormal Lab Results - Last 24 Hours (Table) 04/05/24 04/05/24 Range/Units 09:43 09:43 RBC 5.92 H (4.30-5.90) m/uL Hgb 19.1 H* (13.0-17.5) gm/dL Hct 57.7 H* (39.0-53.0) % Potassium 5.6 H (3.5-5.1) mmol/L Carbon Dioxide 15 L (22-30) mmol/L BUN 27 H (9-20) mg/dL Creatinine 2.60 H (0.66-1.25) mg/dL Glucose 134 H (74-99) mg/dL Calcium 11.0 H (8.4-10.2) mg/dL Total Bilirubin 1.5 H (0.2-1.3) mg/dL Total Protein 11.0 H (6.3-8.2) g/dL Albumin 5.8 H (3.5-5.0) g/dL
[2024-04-06] MEDS: ATORVASTATIN 20 MG TAB PO SCH (09:03)
[2024-04-06] MEDS: PANTOPRAZOLE 40 MG/10 ML VIAL IVP SCH (09:03)
[2024-04-06] MEDS: ENOXAPARIN 40 MG/0.4 ML SYRINGE SQ SCH (09:03)
--- NOTE | 2024-04-06 11:03 | P.PN ---
Subjective Patient is seen in follow-up for acute kidney injury. Renal function improving. Output from ileostomy slowed down. Tolerating oral intake. No vomiting. Vital signs are stable. General: No acute distress. HEENT: Head exam is unremarkable. LUNGS: No audible rhonchi or wheezes. HEART: Rate and Rhythm are regular. ABDOMEN: Ileostomy noted. EXTREMITITES: No edema. Objective - Vital Signs Vital signs: Vital Signs Temp 97.7 F 04/06/24 07:00 Pulse 73 04/06/24 07:00 Resp 16 04/06/24 07:00 BP 145/74 04/06/24 07:00 Pulse Ox 96 04/06/24 07:00 FiO2 Intake & Output 04/05/24 04/06/24 04/06/24 18:59 06:59 18:59 Intake Total 118 118 Balance 118 118 Weight 87.09 kg Intake: Oral 118 118 Other: Voiding Method Toilet # Voids 1 2 - Labs CBC & Chem 7: 04/05/24 09:43 04/05/24 20:52 Labs: Abnormal Lab Results - Last 24 Hours (Table) 04/05/24 04/05/24 Range/Units 10:46 11:55 Potassium 5.8 H (3.5-5.1) mmol/L Chloride 109 H (98-107) mmol/L Carbon Dioxide 11 L (22-30) mmol/L BUN 26 H (9-20) mg/dL Creatinine 1.72 H (0.66-1.25) mg/dL Glucose 101 H (74-99) mg/dL Urine Protein 1+ H (Negative) Urine Blood Small H (Negative) Calcium Oxalate Crystal Rare H (None) /hpf Urine Bacteria Rare H (None) /hpf Hyaline Casts 70 H (0-2) /lpf Urine Mucus Many H (None) /hpf Assessment and Plan Plan: Assessment: 1. Acute kidney injury secondary to ATN secondary to hypovolemia from increased ileostomy output. Creatinine 2.6 on admission and improved to 1.72 as of yesterday evening. Creatinine in November 2022 was near 1. No hydronephrosis noted on kidney ultrasound. 2. Metabolic acidosis secondary to acute kidney injury and GI losses. Currently on bicarb drip. 3. Hypercalcemia secondary to volume contraction and vitamin D supplementation. Denies history of malignancy. Improved. 4. Hyperkalemia secondary to acute kidney injury and metabolic acidosis. Improved. 5. Polycythemia possibly from volume contraction. 6. Benign hypertension. Stable. 7. Crohn's disease status post ileostomy for over 20 years. Plan: Maintain bicarb drip. Avoid calcium and vitamin D supplementation at this time. Avoid nephrotoxins. Continue to monitor renal function and urine output.
[2024-04-06 11:26] LABS: BUN/Creat Ratio 17.45 Ratio (12.00-20.00); Blood Urea Nitrogen 19.2 mg/dL (9.0-27.0); Calcium 9.1 mg/dL (8.7-10.3); Carbon Dioxide 26.1 mmol/L (21.6-31.8); Chloride 100 mmol/L (96-109); Glucose 122 mg/dL (70-110); Magnesium 1.8 mg/dL (1.5-2.4); Potassium 3.7 mmol/L (3.5-5.5); Sodium 138 mmol/L (135-145)
--- NOTE | 2024-04-06 12:52 | P.PN ---
Subjective Progress Note Date: 04/06/24 HISTORY OF PRESENT ILLNESS Patient is a 63-year-old male with a medical history of primary hype rtension, Crohn's disease with ileostomy, and mixed hyperlipidemia. Patient presented to the emergency room today with complaints of nausea, vomiting, and increased ileostomy output. Patient states he normally empties his ileostomy bag twice daily and has been emptying it every hour. Patient states the consistency is clear at this point. Patient also reports that he and his [id number] had eaten the same food two days ago from a restaurant and both have been ill since. Patient reports abdominal cramping as well. Patient was given 2.5 L of normal saline in the emergency department. Nephrology has been consulted. Continue D5W with sodium bicarb at 125 cc an hour. Renal ultrasound showed normal kidneys bilaterally without hydronephrosis calculus or solid renal mass. The urinary bladder was not evaluated due to to nondistention. Patient will be admitted for acute renal failure due to dehydration. 04/06: Patient is sitting up in bed in no apparent distress, he is feeling a lot b stacy today, he continues to be on sodium bicarb drip at 100 cc an hour, he was seen earlier by nephrology, will continue current treatment plan, his ultrasound of the kidney did not show evidence of acute abnormalities, I will keep the patient for another 24 hours, repeat his labs tomorrow morning if his labs are back to normal he can be discharged home and follow-up with us as an outpatient. REVIEW OF SYSTEMS Constitutional: No fever, no chills, no night sweats. No weight change. No weakness, fatigue or lethargy. No daytime sleepiness. EENT: No headache. No blurred vision or double vision, no loss of vision. No loss of Hearing, no ringing in the ears, no dizziness. No nasal drainage or congestion. No epistaxis. No sore throat. Lungs: No shortness of breath, cough, no sputum production. No wheezing. Cardiovascular: No chest pain, no lower extremity edema. No palpitations. No paroxysmal nocturnal dyspnea. No orthopnea. No lightheadedness or dizziness. No syncopal episodes. Abdominal: no abdominal cramping. no nausea, vomiting. Positive diarrhea. No constipation. No bloody or tarry stools. No loss of appetite. Genitourinary: No dysuria, increased frequency, urgency. No urinary retention. Musculoskeletal: No myalgias. No muscle weakness, no gait dysfunction, no frequent falls. No back pain. No neck pain. Integumentary: No wounds, no lesions. No rash or pruritus. No unusual bruising. No change in hair or nails. Neurologic: No aphasia. No facial droop. No change in mentation. No head injury. No headache. No paralysis. No paresthesia. Psychiatric: No depression. No anxiety. No mood swings. Endocrine: No abnormal blood sugars. No weight change. No excessive sweating or thirst. No cold intolerance. PHYSICAL EXAMINATION Gen: This is a 63-year-old male in no apparent distress. HEENT: Head is atraumatic, normocephalic. Pupils equal, round. Sclerae is anicteric. Dry oral mucosa NECK: Supple. No JVD. No lymphadenopathy. No thyromegaly. LUNGS: Clear to auscultation. No wheezes or rhonchi. No intercostal retractions. HEART: First heart sound is depressed, second heart sounds normal, there is no gallop or murmur. No rubs or heaves. ABDOMEN: Soft. Bowel sounds are present. No masses. Mild tenderness all 4 quadrants. Ileostomy present. EXTREMITIES: there is no edema, no calf tenderness, dorsalis pedis +2 bilaterally. NEUROLOGICAL: Patient is awake, alert and oriented x3. Cranial nerves II to XII appear grossly intact, muscle power 5 out of 5 in upper and lower extremities bilaterally. ASSESSMENT AND PLAN 1. Acute kidney injury due to acute tubular necrosis associated with metabolic acidosis due to ileostomy output and volume contraction. Continue sodium bicarb drip at 100 cc an hour, repeat the patient CBC and CMP tomorrow morning, monitor the patient electrolyte very closely. 2. Metabolic acidosis due to acute kidney injury due to ileostomy output continue sodium bicarb drip at 100 cc an hour repeat CMP tomorrow morning. 3. Hyperkalemia due to metabolic acidosis patient did receive 1 dose of Lokelma in the ER, continue sodium bicarb and drip repeat CMP tomorrow morning. 4. Hypercalcemia likely due to acute kidney injury and volume contraction. Monitor the patient very closely, continue sodium bicarb drip. 5. Secondary erythrocytosis due to volume contraction continue IV fluid resus citation in the form of by sodium bicarb and drip, repeat CBC tomorrow morning. 6. Hypertension and hypertensive cardiovascular disease.. Continue Norvasc 5 mg once daily. Monitor the patient blood pressure very closely. 7. Crohn's disease with ileostomy. Stable. 8. Mixed hyperlipidemia. Continue rosuvastatin 10 mg once daily. 9. GI prophylaxis. Start Protonix 40 mg IV once daily. 10. DVT prophylaxis. Start Lovenox 40 mg subcutaneous once daily. 11. Likely home tomorrow morning. Objective - Vital Signs Vital signs: Vital Signs Temp 97.7 F 04/06/24 07:00 Pulse 73 04/06/24 07:00 Resp 16 04/06/24 07:00 BP 145/74 04/06/24 07:00 Pulse Ox 96 04/06/24 07:00 FiO2 Intake & Output 04/05/24 04/06/24 04/06/24 18:59 06:59 18:59 Intake Total 118 118 Balance 118 118 Weight 87.09 kg Intake: Oral 118 118 Other: Voiding Method Toilet # Voids 1 2 - Labs CBC & Chem 7: 04/05/24 09:43 04/06/24 06:32 Labs: Abnormal Lab Results - Last 24 Hours (Table) 04/05/24 04/05/24 04/06/24 Range/Units 10:46 11:55 06:32 Potassium 5.8 H (3.5-5.1) mmol/L Chloride 109 H (98-107) mmol/L Carbon Dioxide 11 L (22-30) mmol/L BUN 26 H (9-20) mg/dL Creatinine 1.72 H (0.66-1.25) mg/dL Glucose 101 H 122 H (74-99) mg/dL Urine Protein 1+ H (Negative) Urine Blood Small H (Negative) Calcium Oxalate Crystal Rare H (None) /hpf Urine Bacteria Rare H (None) /hpf Hyaline Casts 70 H (0-2) /lpf Urine Mucus Many H (None) /hpf
[2024-04-06] MEDS: SODIUM CHLORIDE 0.9% 1,000 ML IV SCH (14:05)
[2024-04-07 08:14] VITALS: BP 136/79; PULSE 70; RESP 16; TEMP 97.5
--- NOTE | 2024-04-07 10:56 | P.PN ---
Subjective Patient is seen in follow-up for acute kidney injury. Renal function improved. Output from ileostomy slowed down significantly compared to admission. Tolerating oral intake. No vomiting. Vital signs are stable. General: No acute distress. HEENT: Head exam is unremarkable. LUNGS: No audible rhonchi or wheezes. HEART: Rate and Rhythm are regular. ABDOMEN: Ileostomy noted. EXTREMITITES: No edema. Objective - Vital Signs Vital signs: Vital Signs Temp 97.5 F L 04/07/24 07:10 Pulse 70 04/07/24 07:10 Resp 16 04/07/24 07:10 BP 136/79 04/07/24 07:10 Pulse Ox 96 04/07/24 07:10 FiO2 Intake & Output 04/06/24 04/07/24 04/07/24 18:59 06:59 18:59 Intake Total 118 355 Balance 118 355 Intake: Oral 118 355 Other: Voiding Method Toilet # Voids 3 1 - Labs CBC & Chem 7: 04/05/24 09:43 04/06/24 06:32 Labs: Abnormal Lab Results - Last 24 Hours (Table) 04/06/24 Range/Units 06:32 Glucose 122 H (70-110) mg/dL Assessment and Plan Plan: Assessment: 1. Acute kidney injury secondary to ATN secondary to hypovolemia from increased ileostomy output. Creatinine 2.6 on admission and improved to 1.1 yesterday. Creatinine in November 2022 was near 1. No hydronephrosis noted on kidney ultrasound. 2. Metabolic acidosis secondary to acute kidney injury and GI losses. Status post bicarb drip. Improved. 3. Hypercalcemia secondary to volume contraction and vitamin D supplementation. Denies history of malignancy. Improved. 4. Hyperkalemia secondary to acute kidney injury and metabolic acidosis. Improved. 5. Polycythemia possibly from volume contraction. 6. Benign hypertension. Stable. 7. Crohn's disease status post ileostomy for over 20 years. Plan: Hep-Lock IV fluids. Avoid calcium and vitamin D supplementation at this time. Avoid nephrotoxins. Continue to monitor renal function and urine output. Continue to hold RUTHIE inhibitor's for now. Follow-up outpatient 1 week postdischarge.
[2024-04-07 11:41] LABS: BUN/Creat Ratio 16.12 Ratio (12.00-20.00); Blood Urea Nitrogen 12.9 mg/dL (9.0-27.0); Carbon Dioxide 26.6 mmol/L (21.6-31.8); Chloride 103 mmol/L (96-109); Glucose 102 mg/dL (70-110); Potassium 3.9 mmol/L (3.5-5.5); Sodium 140 mmol/L (135-145)
[2024-04-07 11:42] LABS: Calcium 8.4 mg/dL (8.7-10.3)
--- NOTE | 2024-04-07 12:47 | P.DS ---
Providers Date of admission: 04/05/24 10:45 Expected date of discharge: 04/07/24 Attending physician: Mayur Camacho Consults: 04/05/24 10:45 Consult Physician Urgent Consulting Provider: Andre Abdalla Consult Reason/Comments: Acute renal failure Do you want consulting provider notified?: Yes Primary care physician: Mayur Camacho [facility] Course: HISTORY OF PRESENT ILLNESS Patient is a 63-year-old male with a medical history of primary hypertension, Crohn's disease with ileostomy, and mixed hyperlipidemia. Patient presented to the emergency room today with complaints of nausea, vomiting, and increased ileostomy output. Patient states he normally empties his ileostomy bag twice daily and has been emptying it every hour. Patient states the consistency is clear at this point. Patient also reports that he and his [id number] had eaten the same food two days ago from a restaurant and both have been ill since. Patient reports abdominal cramping as well. Patient was given 2.5 L of normal saline in the emergency department. Nephrology has been consulted. Continue D5W with sodium bicarb at 125 cc an hour. Renal ultrasound showed normal kidneys bilaterally without hydronephrosis calculus or solid renal mass. The urinary bladder was not evaluated due to to nondistention. Patient will be admitted for acute renal failure due to dehydration. 56: Patient is sitting up in bed in no apparent distress, he is feeling a lot better today, he continues to be on sodium bicarb drip at 100 cc an hour, he was seen earlier by nephrology, will continue current treatment plan, his ultrasound of the kidney did not show evidence of acute abnormalities, I will keep the patient for another 24 hours, repeat his labs tomorrow morning if his labs are back to normal he can be discharged home and follow-up with us as an outpatient. 7: Patient is sitting up in bed in no apparent distress, he denies any chest pain, shortness of breath, he was taken off sodium bicarb and drip, his labs are back to normal, his kidney function test are back to normal, patient was seen earlier by nephrology, it was recommended for the patient be discharged and follow-up as an outpatient. Discharge diagnoses: 1. Acute kidney injury due to acute tubular necrosis associated with metabolic acidosis due to ileostomy output and volume contraction. 2. Metabolic acidosis due to acute kidney injury due to ileostomy output 3. Hyperkalemia due to metabolic acidosis patient 4. Hypercalcemia likely due to acute kidney injury and volume contraction. 5. Secondary erythrocytosis due to volume contraction 6. Hypertension and hypertensive cardiovascular disease.. 7. Crohn's disease with ileostomy. 8. Mixed hyperlipidemia. 9. Hypercalcemia. Patient Condition at Discharge: Stable Plan - Discharge Summary Discharge Rx Participant: No New Discharge Prescriptions: Continue amLODIPine BESYLATE/BENAZEPRIL [amLODIPine BESYLATE/BENAZEPRIL 5-10 mg] 1 cap PO DAILY Rosuvastatin [Crestor] 10 mg PO DAILY Discharge Medication List Rosuvastatin [Crestor] 10 mg PO DAILY 04/05/24 [History] amLODIPine BESYLATE/BENAZEPRIL [amLODIPine BESYLATE/BENAZEPRIL 5-10 mg] 1 cap PO DAILY 04/05/24 [History] Follow up Appointment(s)/Referral(s): Mayur Camacho MD [Primary Care Provider] - 1-2 days Patient Instructions/Handouts: Acute Kidney Injury (DC) Discharge Disposition: HOME SELF-CARE
== END 2024-04-07 13:25 | disposition home or self-care (01) ==
LOC: EC 08:52 → 6NMEDSUR 10:45
PROVIDERS: ADMIT Internal Medicine; ATTEND Internal Medicine
DX: N17.0 Acute kidney failure with tubular necrosis (principal); E87.20 Acidosis, unspecified; E86.0 Dehydration; E83.52 Hypercalcemia; E87.5 Hyperkalemia; D75.1 Secondary polycythemia; E78.2 Mixed hyperlipidemia; K50.90 Crohn's disease, unspecified, without complications; I11.9 Hypertensive heart disease without heart failure; Z90.49 Acquired absence of other specified parts of digestive tract; Z93.2 Ileostomy status; Z93.3 Colostomy status; Z79.899 Other long term (current) drug therapy; Z88.0 Allergy status to penicillin; Z88.5 Allergy status to narcotic agent
CPT/HCPCS: 96376; 96361 ×3; 96375 ×2; 96374; 99285; 36415; 80053; 80048 ×3; 82150; 83605; 83690; 83735 ×3; 84132; 85025; 81001; 76770; G0378 ×3; J2405; C9113 ×2